=== PATIENT | female | born 1975 | race Asian ===

== ENCOUNTER 2017-08-24 20:17 | Emergency (ER) | payer OTHER ==
[~2017-08-24] VITALS: Ht 165.1 cm; Wt 68.0 kg
[2017-08-24] MEDS ORDERED: LEXAPRO20 MG ORAL (20:23)
[2017-08-24 20:42] VITALS: BP 122/77
[2017-08-24] MEDS ORDERED: IBUPROFEN400 M1 PO (20:44)
--- NOTE | 2017-08-24 22:57 | Emergency Room Report ---
History of Present Illness General Chief Complaint: Upper Extremity Injury Source: Patient Present Illness HPI Patient's 42-year-old female who presented after increased right shoulder pain after injury at work. The patient works at [employer]. She reportedly was lifting a box which she says who injured her shoulder during the movement. The patient denies any other locations of pain. She denies any numbness to her hands. She reports having pain to the posterior aspect of the shoulder and worse with movement. Allergies: Coded Allergies: No Known Allergies (Unverified , 08/24/17) Patient History Past Medical History: see triage record Last Menstrual Period: 08/07/17 Now: No : 0 Para: 0 Reviewed Nursing Documentation: PMH: Agreed, PSxH: Agreed Nursing Documentation-PMH Past Medical History: No History, Except For History Of Psychiatric Problem: Yes - depression Review of Systems All Other Systems: negative except mentioned in HPI Physical Exam Vital Signs Date Time Temp Pulse Resp B/P (MAP) Pulse Ox O2 Delivery O2 Flow Rate FiO2 08/24/17 20:20 98.2 85 14 122/77 99 Room Air General Appearance: well appearing, no apparent distress, alert, GCS 15 Head: normocephalic, atraumatic ENT: hearing grossly normal, normal voice Neck: full range of motion, supple Respiratory: no respiratory distress, speaking full sentences Cardiovascular #1: normal inspection, normal peripheral pulses, regular rate, rhythm Gastrointestinal: normal inspection Musculoskeletal: normal inspection, back normal, gait/station normal, normal range of motion, no calf tenderness, other - tenderness posterior right deltoid Neurologic: normal inspection, alert, oriented x3, responsive, normal gait Psychiatric: mood/affect normal Skin: no rash Medical Decision Making Diagnostic Impression: Primary Impression: Muscle strain of right shoulder ER Course Patient presented for shoulder pain. Differential diagnoses included was not limited to muscle strain, fracture, dislocation, a.c. separation, septic joint. Patient has a benign exam and does not appear to require any further imaging or laboratory testing at this time. The patient's exam is consistent with a muscle strain. Patient is advised she may need MRI pain persist. The patient placed on light duty. The patient is advised to follow up with workers compensation doctor in 7 days. Patient is advised to return if any worsening condition or if any changes in status that are concerning. This report is dictated with Dragon sales enablement consultant software which may occasionally lead to discrepancies related to use of this software. Last Vital Signs Date Time Temp Pulse Resp B/P (MAP) Pulse Ox O2 Delivery O2 Flow Rate FiO2 08/24/17 20:42 98.2 14 122/77 99 Room Air 08/24/17 20:20 85 Status: improved Disposition: HOME, SELF-CARE Condition: Stable Scripts Ibuprofen (Ibuprofen) 400 Mg Tablet 400 MG PO Q8HR, #30 TAB Prov: Kevyn Rocha 08/24/17 Referrals: NOT CHOSEN [facility]/MD,REFERRING (PCP) Patient Instructions: Shoulder Pain Additional Instructions: Minimize overhead work, apply ice to affected area. Recheck in 1 week with workers comp physician. Kevyn Rocha Aug 24, 2017 22:57
== END 2017-08-24 21:00 | disposition home or self-care (01) ==
LOC: EMR 20:55
DX: S46.911A Strain of unspecified muscle, fascia and tendon at shoulder and upper arm level, right arm, initial encounter (principal); F32.9 Major depressive disorder, single episode, unspecified; X50.9XXA Other and unspecified overexertion or strenuous movements or postures, initial encounter; Y92.512 Supermarket, store or market as the place of occurrence of the external cause; Y99.0 Civilian activity done for income or pay
CPT/HCPCS: 99283